=== PATIENT | female | born 1955 | race Two or more races ===

== ENCOUNTER 2025-03-17 13:53 | Inpatient (IN) | payer OTHER ==
[~2025-03-17] VITALS: Ht 154.9 cm; Wt 40.8 kg
[2025-03-17] MEDS ORDERED: 0.9 % SODIUM CHLORIDE 1,000 ML IV SCH ×2 (16:00→21:00)
[2025-03-17 17:05] LABS: BASO % 0.2 % (0.1-1.2); EOS # 0.01 (0.04-0.54); EOS % 0.1 % (0.7-7.0); LYMPH # 0.83 (1.18-3.74); LYMPH % 4.4 % (19.3-53.1); MEAN CORPUSCULAR HEMOGLOBIN 19.9 pg (25.6-32.2); MONO # 0.75 (0.24-0.82); MONO % 3.9 % (4.7-12.5); PLATELET COUNT 1050 K/uL (163-369); RED BLOOD COUNT 2.97 M/uL (3.93-5.22); RED CELL DISTRIBUTION WIDTH 19.5 % (11.6-14.4)
[2025-03-17 17:13] LABS: HEMATOCRIT 20.1 % (34.1-44.9); HEMOGLOBIN 5.9 g/dL (11.2-15.7)
[2025-03-17 17:20] LABS: INR 1.14; PARTIAL THROMBOPLASTIN TIME 25.9 SECONDS (22.0-34.0); PROTHROMBIN TIME 12.3 SECONDS (9.0-11.5)
[2025-03-17 17:26] LABS: ALBUMIN 2.6 gm/dL (3.4-5.0); ALKALINE PHOSPHATASE 129 U/L (50-136); ALT/SGPT 18 U/L (12-78); ANION GAP 13 (10.0-20.0); AST/SGOT 15 U/L (15-37); BILIRUBIN TOTAL 0.24 mg/dL (0.3-1.2); BILIRUBIN,CONJUGATED < 0.10 mg/dL (0.0-0.2); BILIRUBIN,UNCONJUGATED 0.14 mg/dL (0.0-0.6); BLOOD UREA NITROGEN 13 mg/dL (7-18); BUN CREA RATIO 17 (7.0-25.0); CALCIUM 9.4 mg/dL (8.5-10.1); CARBON DIOXIDE 23 mEq/L (21-32); CHLORIDE 111 mmol/L (98-107); CREATININE SERUM 0.76 mg/dL (0.55-1.02); GFR 75.23; GLOBULINA 4.1 G/DL (2.4-3.5); GLUCOSE FASTING 101 mg/dL (65-100); OSMOLALITY SERUM 283 MOSM/KG (275-295); POTASSIUM 5.01 mEq/L (3.5-5.1); SODIUM 142 mmol/L (136-145); TOTAL PROTEIN 6.7 gm/dL (6.4-8.2)
[2025-03-17 17:42] LABS: COVID-19 AG NEGATIVE (NEGATIVE)
[2025-03-17 18:34] LABS: INFLUENZA A AG NEGATIVE (NEGATIVE); INFLUENZA B AG NEGATIVE (NEGATIVE)
[2025-03-17 18:38] LABS: URINE APPEARANCE Cloudy; URINE BILIRRUBIN Negative (NEGATIVE); URINE BLOOD Negative; URINE COLOR Dark Yellow; URINE GLUCOSE Negative (NEGATIVE); URINE KETONE Negative (NEGATIVE); URINE LEUKOCYTE Moderate; URINE NITRATE Positive; URINE PROTEIN 30 (NEGATIVE); URINE UROBILINOGEN 0.2 E.U./dl
[2025-03-17 18:42] LABS: URINE CAST 5.54 uL (0.0-1.40); URINE EPITHELIAL CELLS 48.4 uL (0.0-38.8); URINE RBC 87.7 uL (0.0-20.8); URINE WBC 181.5 uL (0.0-23.2)
[2025-03-17 19:19] LABS: TYPE CELLS SQUAMOUS; URINE BACTERIA > 9821.5 uL (0.0-1933)
[2025-03-17] MEDS ORDERED: CEFTRIAXONE SODIUM 2,000 MG in 0.9 % SODIUM CHLORIDE 100 ML IV SCH (20:57)
[2025-03-17] MEDS ORDERED: PANTOPRAZOLE SODIUM 80 MG in 0.9 % SODIUM CHLORIDE 100 ML IV SCH (21:00)
[2025-03-17] MEDS ORDERED: ONDANSETRON HCL 4 MG in 0.9 % SODIUM CHLORIDE 50 ML IV PRN (21:00)
[2025-03-17] MEDS ORDERED: PANTOPRAZOLE SODIUM 40 MG/VIAL VIAL IV ONE (21:00)
[2025-03-17] MEDS ORDERED: ACETAMINOPHEN 500 MG GEL..CAP PO PRN (21:00)
[2025-03-17] MEDS ORDERED: CEFTRIAXONE SODIUM 1,000 MG VIAL IV ONE (21:00)
[2025-03-17 22:06] VITALS: BP 139/67
[2025-03-18] VITALS (8 sets, daily range): BP systolic 115–132; BP diastolic 62–73; O2SAT 96–100
[2025-03-18 03:12] LABS: MAGNESIUM 2.2 mg/dL (1.8-2.4); TSH 0.793 uIU/mL (0.358-3.74)
[2025-03-18 05:25] LABS: ob POSITIVE (NEGATIVE)
[2025-03-18 14:01] LABS: BASO % 0.3 % (0.1-1.2); EOS # 0.02 (0.04-0.54); EOS % 0.1 % (0.7-7.0); LYMPH # 1.07 (1.18-3.74); LYMPH % 6.8 % (19.3-53.1); MEAN CORPUSCULAR HEMOGLOBIN 25.5 pg (25.6-32.2); MONO # 0.87 (0.24-0.82); MONO % 5.5 % (4.7-12.5); NEUT # 13.65 (1.56-6.13); NEUT % 86.8 % (34.0-71.1); PLATELET COUNT 633 K/uL (163-369); RED BLOOD COUNT 3.61 M/uL (3.93-5.22); RED CELL DISTRIBUTION WIDTH 21.9 % (11.6-14.4)
[2025-03-18 14:10] LABS: HEMOGLOBIN 9.2 g/dL (11.2-15.7)
[2025-03-18] MEDS ORDERED: ALPRAzolam 0.25 MG TABLET PO SCH (17:00)
[2025-03-19 01:19] LABS: BASO % 0.3 % (0.1-1.2); EOS # 0.03 (0.04-0.54); EOS % 0.2 % (0.7-7.0); HEMATOCRIT 29.1 % (34.1-44.9); HEMOGLOBIN 9.9 g/dL (11.2-15.7); LYMPH # 1.08 (1.18-3.74); LYMPH % 7.2 % (19.3-53.1); MEAN CORPUSCULAR HEMOGLOBIN 25.9 pg (25.6-32.2); MONO # 0.86 (0.24-0.82); MONO % 5.7 % (4.7-12.5); NEUT # 12.89 (1.56-6.13); NEUT % 86.2 % (34.0-71.1); PLATELET COUNT 529 K/uL (163-369); RED BLOOD COUNT 3.82 M/uL (3.93-5.22); RED CELL DISTRIBUTION WIDTH 19.9 % (11.6-14.4)
[2025-03-19 04:00] VITALS: BP 127/59; O2SAT 100
[2025-03-19 07:21] VITALS: BP 99/69; O2SAT 100
[2025-03-19] MEDS ORDERED: PEG3350/SOD SULF,BICARB,CL/KCL 4,000 ML GALLON PO STA (11:25)
[2025-03-19 12:00] VITALS: BP 145/70; O2SAT 100
[2025-03-19 16:00] VITALS: BP 142/70; O2SAT 100
[2025-03-19 20:00] VITALS: BP 135/96; O2SAT 100
[2025-03-20] VITALS (7 sets, daily range): BP systolic 126–159; BP diastolic 56–75; O2SAT 97–100
[2025-03-20 05:07] LABS: BASO % 0.3 % (0.1-1.2); EOS # 0.06 (0.04-0.54); EOS % 0.4 % (0.7-7.0); HEMATOCRIT 35.9 % (34.1-44.9); LYMPH # 1.22 (1.18-3.74); LYMPH % 7.4 % (19.3-53.1); MEAN CORPUSCULAR HEMOGLOBIN 25.8 pg (25.6-32.2); MONO # 0.99 (0.24-0.82); NEUT # 14.14 (1.56-6.13); NEUT % 85.4 % (34.0-71.1); PLATELET COUNT 477 K/uL (163-369); RED CELL DISTRIBUTION WIDTH 21.2 % (11.6-14.4)
[2025-03-20 05:21] LABS: HEMOGLOBIN 11.6 g/dL (11.2-15.7)
[2025-03-20 05:32] LABS: ALBUMIN 2.3 gm/dL (3.4-5.0); BILIRUBIN TOTAL 0.75 mg/dL (0.3-1.2); CALCIUM 8.9 mg/dL (8.5-10.1); CREATININE SERUM 0.58 mg/dL (0.55-1.02); GFR 102.77; GLOBULINA 3.6 G/DL (2.4-3.5); POTASSIUM 3.3 mEq/L (3.5-5.1); TOTAL PROTEIN 5.9 gm/dL (6.4-8.2)
[2025-03-20] MEDS ORDERED: BUTALB/ACETAMINOPHEN/CAFFEINE 1 TAB TABLET PO PRN (11:15)
[2025-03-20] MEDS ORDERED: POTASSIUM BICARBONATE/CIT AC 25 MEQ TABLET.EFF PO SCH (11:15)
[2025-03-20] MEDS ORDERED: POTASSIUM CHLORIDE IN WATER 100 ML IV SCH (12:00)
[2025-03-20] MEDS ORDERED: DIATRIZOATE MEGLUMINE, SODIUM 30 ML BOTTLE PO NR (13:05)
[2025-03-20] MEDS ORDERED: METHYLPREDNISOLONE SOD SUCC 40 MG VIAL IV NR (15:45)
[2025-03-20] MEDS ORDERED: DIPHENHYDRAMINE HCL 50 MG/ML VIAL 1ML IV NR (15:45)
[2025-03-21 01:34] VITALS: BP 109/61; O2SAT 97
[2025-03-21 06:17] LABS: BASO % 0.1 % (0.1-1.2); HEMATOCRIT 32.4 % (34.1-44.9); HEMOGLOBIN 10.5 g/dL (11.2-15.7); LYMPH # 0.36 (1.18-3.74); LYMPH % 3.9 % (19.3-53.1); MEAN CORPUSCULAR HEMOGLOBIN 25.4 pg (25.6-32.2); MONO # 0.11 (0.24-0.82); MONO % 1.2 % (4.7-12.5); NEUT # 8.74 (1.56-6.13); NEUT % 94.3 % (34.0-71.1); PLATELET COUNT 630 K/uL (163-369); RED BLOOD COUNT 4.13 M/uL (3.93-5.22); RED CELL DISTRIBUTION WIDTH 20.8 % (11.6-14.4)
[2025-03-21 08:04] VITALS: BP 131/80
[2025-03-21] MEDS ORDERED: CEFEPIME HCL 2,000 MG VIAL IV SCH (09:00)
[2025-03-21] MEDS ORDERED: ENOXAPARIN SODIUM 40 MG/0.4 ML SYRINGE SUBCUTANEO SCH (16:54)
[2025-03-21 18:11] VITALS: BP 150/76; O2SAT 97
== END 2025-03-21 19:20 | disposition home or self-care (01) | DRG 812 ==
LOC: ER 13:58 → ICU-2 21:56 → ICU 21:56 → MEDI 21:56 → ICU 03-18 02:46 → MEDI 03-20 20:18
PROVIDERS: Emergency Medicine; General Practice; Internal Medicine; ADMIT Student in an Organized Health Care Education/Training Program; ATTEND Student in an Organized Health Care Education/Training Program
PROC: BW21ZZZ Computerized Tomography (CT Scan) of Abdomen and Pelvis (ICD-10-PCS; 2025-03-17)
PROC: 30233N1 Transfusion of Nonautologous Red Blood Cells into Peripheral Vein, Percutaneous Approach (ICD-10-PCS; 2025-03-18)
PROC: 0DBN8ZX Excision of Sigmoid Colon, Via Natural or Artificial Opening Endoscopic, Diagnostic (ICD-10-PCS; principal; 2025-03-19)
PROC: BW24YZZ Computerized Tomography (CT Scan) of Chest and Abdomen using Other Contrast (ICD-10-PCS; 2025-03-20)
DX: D64.9 Anemia, unspecified (principal); N39.0 Urinary tract infection, site not specified; C77.2 Secondary and unspecified malignant neoplasm of intra-abdominal lymph nodes; N13.1 Hydronephrosis with ureteral stricture, not elsewhere classified; K92.2 Gastrointestinal hemorrhage, unspecified; C78.5 Secondary malignant neoplasm of large intestine and rectum; K92.1 Melena; D75.839 Thrombocytosis, unspecified; B96.1 Klebsiella pneumoniae [K. pneumoniae] as the cause of diseases classified elsewhere; C50.911 Malignant neoplasm of unspecified site of right female breast; D63.0 Anemia in neoplastic disease